=== PATIENT | male | born 1970 | race Two or more races ===

== ENCOUNTER 2025-02-04 20:47 | Emergency (ER) | payer BC, SELFPAY ==
[2025-02-04 20:48] VITALS: BMI 28.3
[2025-02-04 20:55] VITALS: BP 135/81; PULSE 75; RESP 17; TEMP 37.3; O2SAT 98
--- NOTE | 2025-02-04 21:05 | XR_ITS ---
Examination: CT maxillofacial, with contrast 2-D sagittal and coronal reconstructions. 3-D reconstructions Date and time of exam: February 04, 2025, 10 0 1:00 p.m. INDICATIONS: Facial redness swelling and pain periorbital cellulitis diagnosis, bump on the left cheek beginning 4 days ago CTDI: vol (mGy): 36.1 DLP: (mGycm): 757 Technique: Multiple axial images maxillofacial region, 3.0 mm slice thickness, post intravenous injection 60 cc Isovue-370 cc Isovue 370. 2-D sagittal coronal reconstructions. 3-D reconstructions Low dose protocols were performed. One or more of the following dose reduction techniques were used; automated exposure control, adjustment of the mA and/or KV according to patient size, use of iterative reconstruction technique. Findings: Marked cellulitis pattern in the left face including skin thickening external to the mandible and the maxilla No soft tissue abscess No clifton cortical bone destruction Right maxillary incisor dental caries No osteomyelitis Optic globes exhibit symmetry Symmetrical oropharynx nasopharynx no tonsillar abscess Symmetrical submandibular glands There is edema around the left submandibular gland and left parotid gland IMPRESSION: Significant left facial cellulitis, possible left submandibular sialoadenitis left parotitis, clinical correlation advised No fluid-filled abscess Negative for osteomyelitis
--- NOTE | 2025-02-04 21:08 | PD.EDADULT ---
ED General RME/HPI General Chief complaint: Skin/Abscess/Foreign Body Stated complaint: BUMP IN LEFT CHEEK Time Seen by Provider: 02/04/25 21:01 Arrival date/time: 02/04/25 20:47 CC: Facial swelling pain HPI onset 4 days ago patient has left-sided facial swelling started with an infected pimple , and progressively worsened, patient was seen by PCP started on oral clindamycin and given a shot , after which from noon until now the patient states that the size is doubled . Patient denies difficulty swallowing difficulty seeing or difficulty speaking. No prior history of similar events. Patient states he has pimples that pop up on a regular basis but they go away spontaneously. The patient is a diabetic states his sugars been running in the 170s. Patient denies blurred vision seeing spots or double vision. Related Data Previous Rx's ?Medication ?Instructions ?Recorded levofloxacin 750 mg tablet 750 mg PO Q24H 10 days #10 tabs 02/04/25 meloxicam 7.5 mg tablet 7.5 mg PO QDAY #10 tabs 02/04/25 Allergies Allergy/AdvReac Type Severity Reaction Status Date / Time No Known Allergies Allergy Verified 02/04/25 20:47 Review of Systems Review of Systems Narrative Review of Systems: GEN: No fever, no chills, no weight loss EYES: No discharge, no visual changes, no pain HEENT: No ear pain, no congestion, no sore throat PULM: No shortness of breath, no cough, no congestion CV: No chest pain, no dyspnea on exertion, no palpitations GI: No nausea, no vomiting, no diarrhea, no pain, no constipation : No frequency, no urgency, no dysuria MUSC/SKEL: No joint pain, no back pain SKIN: Redness and swelling left cheek, no rash PSYCH: No hallucinations, no depression HEME/LYMPH: No easy bleeding or bruising tendencies NEURO: No weakness, no headache Past Medical History Social History SMOKING STATUS: Never smoker ED Exam Narrative Physical exam: [General: In moderate discomfort but not in any acute distress Head normocephalic HEENT: Face: Left facial edema that extends just distal to the lateral canthus of the eye down through the zygomatic arch to the corner of the mouth. There is also an exudative bulge without any oozing in the hairline of the paul. No streaking or erythema up to the orthodoxy. Eyes: EOMs intact no entrapment pupils are PERRLA. Mouth pink moist membranes uvula is midline swallow symmetrical phonation is normal. No poor dentition, no edema in the buccal soft tissue of the cheek. Nose no rhinorrhea asymmetry or epistaxis. Ears no otorrhea. Neck is supple nontender Chest equal chest rise nontender to palpation Respiratory: Clear to auscultation no wheezes crackles or rubs CV: Rate rhythm is regular no murmurs rubs or clicks Abdomen is soft nontender no masses positive bowel sounds all 4 quadrants Back: No CVA tenderness no spinous process tenderness from cervical spine thoracic and lumbar spine Skin: Intact no petechiae rash induration ulceration or crepitus Extremities: Moving all extremity against resistance cap refill less than 2 seconds neurosensory intact Neuro: Awake alert oriented x3 Glascow coma 15 no focal deficits] Course Course Course Narrative: Patient case discussed with Dr. Angus Bray prior to discharge. Patient will be given an additional antibiotic Levaquin, in addition to his clindamycin he is to return in 24 hours for reassessment. At which time we consider admission for IV antibiotics or discharged home on continued oral antibiotics. Quality Measures none Orders Category Date Time Status CT Screening NOW Care 02/04/25 21:07 Active Saline [Insert IV] NOW Care 02/04/25 21:[address] facial bones w con Stat Exams 02/04/25 21:05 Completed CBC Stat Lab 02/04/25 21:19 Completed CMP [Comprehensive Metabolic Panel] Stat Lab 02/04/25 21:19 Completed Piper/Tazo 3.375 gm Premix [Zosyn] Med 02/04/25 21:07 Discontinued 3.375 gm in 50 ml IV X1 oxyCODONE/APAP 5/325 [Percocet 5/325] Med 02/04/25 22:50 Once 1 tab PO X1 ONE Vital Signs Vital signs: Vital Signs Temperature 99.2 F 02/04/25 20:55 Pulse Rate 75 02/04/25 20:55 Respiratory Rate 17 02/04/25 20:55 Blood Pressure 135/81 H 02/04/25 20:55 Pulse Oximetry (%) 98 02/04/25 20:55 Oxygen Delivery Method Room Air 02/04/25 20:55 Discharge Plan Plan Patient Disposition: HOME (Self Care) Patient condition on transfer: Stable Prescriptions/Referrals Prescriptions/Med Rec: New levofloxacin 750 mg tablet 750 mg PO Q24H 10 Days Qty: 10 0RF meloxicam 7.5 mg tablet 7.5 mg PO QDAY Qty: 10 0RF Referrals: Devon Han [Primary Care Provider] - In 1 week Problem List Clinical Impression: Cellulitis of face Patient/Caregiver Discharge Instructions Other Activity Instructions:: Take the additional medication along with the 1 prescribed by your PCP. Return in 24 hours for recheck. Any worsening of symptoms difficulty breathing difficulty speaking or high fever return immediately to the emergency room do not wait 24 hours. Education Materials: ED Cellulitis, Facial Print Language: Brazilian Stand Alone Forms: Natali Award Info., Patient Portal Info Letter, Work/School Release PA/IDENTITY MANAGEMENT DEVELOPER Supervising Physician PA/VALERY Supervising Physician: Arun Thomas ENP [facility] Clinical Information Provided by: patient Medical Records reviewed [facility] Meds/Rx considered, not ordered None Labs/Rad/Tests considered, not ordered None Chronic Illness/Social Conditions Explain: Diabetes EKG EKG not done Labs Labs: interpreted by vt Lab(s) Interpretation(s): CBC shows a leukocytosis of 11.3 no anemia or thrombocytopenia CMP shows no significant electrolyte imbalances a glucose of 289 no transaminitis or T. bili elevation. Imaging Imaging interpretation: interpreted by vt Imaging Interpretation(s): CT shows significant left facial cellulitis left parotiditis no fluid-filled abscess. Medication Administration(s) Medication Administration History Discontinued Medications Piperacillin/Tazobactam/Dextrose (Zosyn) 3.375 gm in 50 mls @ 100 mls/hr IV X1 ONE; Protocol Stop: 02/04/25 21:36 Last Infusion: 02/04/25 22:49 Dose: Infused Documented By: Admin: 02/04/25 21:47 Dose: 100 mls/hr Documented By: LYDIA
[2025-02-04 21:31] LABS: Basophils # (Auto) 0.1 Thou/mm3 (0.0-0.2); Basophils % (Auto) 0 % (0-2.5); Eosinophils # (Auto) 0.4 Thou/mm3 (0.0-0.5); Eosinophils % (Auto) 3 % (0-10); Hematocrit 41.6 % (41.0-53.0); Hemoglobin 14.4 g/dL (13.5-16.0); Immature Granulocytes Auto 0.03 Thou/mm3 (0.00-0.00); Lymphocytes # (Auto) 2.2 Thou/mm3 (1.0-4.8); Lymphocytes % (Auto) 19 % (10-50); Mean Corpuscular HGB Conc 34.6 g/dl (31.0-37.0); Mean Corpuscular Hemoglobin 30.8 pg (25.0-35.0); Mean Corpuscular Volume 89 fL (80-100); Monocytes # (Auto) 0.8 Thou/mm3 (0.0-0.8); Monocytes % (Auto) 7 % (0-12); Neutrophils # (Auto) 7.9 Thou/mm3 (1.8-7.7); Neutrophils % (Auto) 70 % (37-80); Nucleated Red Blood Cell # 0.00 Thou/mm3 (0.00-0.00); Nucleated Red Blood Cell % 0 /100 WBC (0); Platelet Count 226 Thou/mm3 (140-440); RDW Standard Deviation 41.1 fL (35.1-43.9); Red Blood Count 4.68 Miln/mm3 (4.50-5.90); White Blood Count 11.3 Thou/mm3 (3.8-10.6)
[2025-02-04] MEDS: PIPER/TAZO 3.375 GM PREMIX 3.375 GM/50 ML BAG IV (21:47)
[2025-02-04 21:52] LABS: Alanine Aminotransferase 16 U/L (10-49); Albumin, Serum 4.4 gm/dL (3.5-5.0); Albumin/Globulin Ratio 1.7 (1.2-2.2); Alkaline Phosphatase 136 U/L (46-116); Anion Gap 10 (7-16); Aspartate Amino Transferase 13 U/L (0-34); BUN/Creatinine Ratio 11 Ratio (12-20); Bilirubin,Total 0.7 mg/dL (0.3-1.2); Blood Urea Nitrogen 13 mg/dL (9-23); Calcium 9.5 mg/dL (8.3-10.6); Calcium (Corrected) 9.5 mg/dL (8.5-10.1); Carbon Dioxide 24.3 mMol/L (20.0-31.0); Chloride 104 mMol/L (98-107); Creatinine (Component) 1.2 mg/dL (0.6-1.3); Estimated Creatinine Clearance 71.3 mL/min (>60); Globulin 2.6 gm/dL (2.3-3.5); Glucose 289 mg/dL (74-106); Osmolality,Calculated 286 (275-295); Potassium 3.8 mMol/L (3.4-5.1); Sodium 138 mMol/L (136-145); Total Protein 7.0 gm/dL (5.7-8.2); eGFR > 60 See Note
[2025-02-04 23:08] VITALS: BP 120/76; PULSE 67; RESP 17; TEMP 37; O2SAT 96
== END 2025-02-04 23:20 | disposition home or self-care (01) ==
PROVIDERS: Registered Nurse General Practice; Emergency Provider Emergency Medicine; PCP Physician Assistant
DX: L03.211 Cellulitis of face (principal); E11.9 Type 2 diabetes mellitus without complications
CPT/HCPCS: 36415; 70487; 80053; 85025; 96365; 99284; A4649; J2543; Q9967; A9270